=== PATIENT | female | born 1980 | race Caucasian/White ===

== ENCOUNTER 2018-08-28 06:56 | Inpatient (IN) | payer OTHER ==
[~2018-08-28] VITALS: Ht 157.5 cm; Wt 70.8 kg
[2018-08-28] MEDS ORDERED: MULTIVITAMINS1 EAC9 PO (09:26)
== END 2018-08-30 11:59 | disposition home or self-care (01) | DRG 621 ==
LOC: ADM 09:00 → O/R 08-29 06:45 → CIR.AMB 08-29 07:00 → EDSTATUS 08-29 09:00 → CIR.AMB 08-29 09:00 → SURG-SUITE 08-29 09:00 → SURG 08-29 19:26
PROVIDERS: Specialist
PROC: 0HBBXZZ Excision of Right Upper Arm Skin, External Approach (ICD-10-PCS; 2018-08-29)
PROC: 0HBV0ZZ Excision of Bilateral Breast, Open Approach (ICD-10-PCS; principal; 2018-08-29 07:00)
PROC: 0JB80ZZ Excision of Abdomen Subcutaneous Tissue and Fascia, Open Approach (ICD-10-PCS; 2018-08-29 07:00)
PROC: 0HBCXZZ Excision of Left Upper Arm Skin, External Approach (ICD-10-PCS; 2018-08-29 07:00)
DX: E65 Localized adiposity (principal); N62 Hypertrophy of breast; E66.01 Morbid (severe) obesity due to excess calories; Z98.84 Bariatric surgery status